=== PATIENT | male | born 1975 | race Caucasian/White ===

== ENCOUNTER 2020-09-06 07:48 | Emergency (ER) | payer OTHER, SELFPAY ==
--- NOTE | ~2020-09-06 | XR_ITS ---
EXAMINATION: XR CHEST CLINICAL INFORMATION: Fever. COMPARISON: None TECHNIQUE: Frontal view of the chest was obtained. FINDINGS: The lungs are well-expanded and clear. The heart size and pulmonary vascularity is normal. No gross bony abnormality seen XR/XR chest 1V IMPRESSION: Unremarkable chest exam.
[2020-09-06 07:58] VITALS: BP 121/74; BP 150/90; PULSE 111; PULSE 140; RESP 20; TEMP 38.9; O2SAT 93; O2SAT 95; BMI 28.7
[2020-09-06] MEDS: Acetaminophen 325 MG TABLET 650 MG PO (08:23)
[2020-09-06 08:50] LABS: COVID-19 Test Negative (Negative)
--- NOTE | 2020-09-06 08:53 | PC.NURSE ---
PT DROWSY, DRINKING WATER, AWAITING MD ELIJAH, NEGATIVE COVID, MEDICATED FOR FEVER
--- NOTE | 2020-09-06 09:15 | ED_ITS ---
HPI - General Adult General Chief complaint: Altered Mental Status Stated complaint: ALTERED MENTAL Time Seen by Provider: 09/06/20 08:50 Source: EMS Mode of arrival: EMS Limitations: no limitations History of Present Illness HPI narrative: 45-year-old male with a past medical history of substance abuse here with complaints of reported altered mental status. Patient was found outside sitting on the ground. Had abrasions all over his legs. He admits to drinking alcohol and smoking some marijuana last night. There was concern from EMS the patient was confused. He was transported to the ER for further eval uation. He tells me he feels well. He was noted to have a fever of 102 on arrival but denies any recent fevers or chills. No vomiting, diarrhea, cough, shortness of breath, chest pain, neck pain, headache. He tells me he has not used any cocaine or heroin since April and recently got out of recovery and is currently on Suboxone Related Data Allergies Allergy/AdvReac Type Severity Reaction Status Date / Time No Known Allergies Allergy Unverified 11/26/19 19:11 [No Known Allergies*] Review of Systems Review of Systems: Yes all other systems are reviewed and are negative Constitutional: Constitutional: Reports no additional constitutional complaints, Denies body ache(s), Denies chills, Denies fever(s), Denies headache(s) and Denies weakness Eyes: Eyes: Reports no additional eye complaints and Denies change in vision ENT: Reports system reviewed and no additional complaints, except as documented, Denies dizziness, Denies headache(s), Denies nasal congestion, Denies nasal discharge and Denies neck pain Cardiovascular: Cardiovascular: Reports no additional cardiovascular complaints, Denies chest pain, Denies leg edema and Denies dyspnea Respiratory: Respiratory: Reports no additional respiratory complaints, Denies cough and Denies dyspnea Gastrointestinal: Gastrointestinal: Reports no additional gastrointestinal complaints, Denies abdominal pain, Denies diarrhea, Denies nausea and Denies vomiting Genitourinary: Genitourinary: Denies urinary incontinence Musculoskeletal: Musculoskeletal: Reports no additional musculoskeletal complaints, Denies back pain, Denies arthralgias, Denies joint swelling, Denies neck pain, Denies numbness and Denies tingling Integumentary/Breasts: Skin/Breast: Reports system reviewed and no additional complaints, except as docu and Denies rash Comments: abrasion Neurologic: Reports system reviewed and no additional complaints, except as documented, Denies Abnormal speech present, Denies dizziness, Denies headache(s), Denies numbness, Denies tingling and Denies weakness PMFSH Past Medical History Attestation statement: The following information was validated with the patient. Source: old records reviewed and nursing notes reviewed Medical History Anxiety Substance abuse or dependence Social History Social History Advance Directives: No Advance Directives Information Provided: No Physical Exam Vital Signs: Vital Signs: Last Vital Signs Temp 99.2 F 09/06/20 10:01 Pulse 91 09/06/20 10:31 Resp 17 09/06/20 10:31 BP 121/74 09/06/20 07:58 Pulse Ox 94 09/06/20 10:31 Body Mass Index 28.7 Const: General: alert, awake and anxious Orientation/consciousness: patient oriented x3 Limitations: no limitations HENMT: Head: Yes normal to inspection Ears: hearing grossly normal bilaterally General nose exam: Normal external nose present Face and sinus: Yes normal facial exam Mouth: Normal oral and palatal mucosa present Throat: Yes posterior oropharynx normal Eyes: General: appearance normal, both eyes and all related structures Pupils: Equal, round and reactive pupils present and Pupil size comments ( pinpoint bilaterally) Neck: Neck: Yes normal visual inspection, Yes full ROM, Yes no lymphadenopathy and Yes no meningeal signs Chest: Chest palpation & inspection: normal inspection of the chest Resp: Effort & Inspection: normal respiratory effort Auscultation: clear to auscultation bilaterally Cardio: Rate: regular rate Rhythm: regular rhythm Peripheral pulses: Peripheral pulses 2+ throughout GI: Inspection: Yes normal to inspection Palpation (GI): Soft to palpation and nontender Auscultation: normal bowel sounds Back/Spine/Pelvis: Thoracic/Lumbar Spine: thoracic and lumbar spine normal to inspection Skin: Other: abrasions noted over the right and left knee and bilateral forearms with no active bleeding General skin exam: no rashes or lesions noted Neuro: Other: erratic behavior, jerking arms/legs around General: patient oriented x3, no meningeal signs, no focal motor deficits and normal sensation to monofilament Cranial nerves: Yes CN's II-XII intact bilaterally, Yes Equal, round and reactive pupils present, Yes Bilaterally intact EOM present, Yes Nystagmus not present, Yes Normal facial strength present and Yes Midline tongue present Cognition (Neuro): normal cognition Speech: No Abnormal speech present Gait exam (Neuro): Normal gait present Motor exam (neuro): 5/5 motor strength present throughout Sensory Exam: Normal double simultaneous stimulation for sensation Extrem: General: Yes normal to inspection Course Course Course Narrative: 45-year-old male after being found sitting outside with abrasions over his legs and arms after he admits to smoking marijuana and drinking a lot of alcohol last night. There was concern for EMS that he was initially altered although on arrival to the emergency department he is oriented x3. He does have pinpoint pupils and is anxious but answers all questions appropriately with stable vital signs. On arrival he has a temperature of 102.1 degrees. He denies any recent illness or any complaints. He had a COVID test and a chest x-ray done by nursing which are negative. He received Tylenol and his temp has improved. I explained to the patient that due to his history of IV drug abuse I am concerned that he may have a more systemic infection which includes but is not limited to meningitis, endocarditis, bacteremia, epidural abscess. I asked the patient if we could obtain labs from him as well as additional imaging but he declined this. He is aware that if he has a systemic infection this could cause disability and . Since he is alert and oriented and answering all questions appropriately I do not feel like we can hold him here against his well. There is a component of substance abuse although he denies currently using any heroin or cocaine he does have some pinpoint pupils on exam and is quite anxious with erratic body movements. Due to this I did explain to the patient that he will need a sober ride to pick him up and bring him home. He is aware he is welcome to return at any time for treatment. - patient had a sober ride who came and picked him up. He walked out with steady gait alert and oriented. Medical Decision Making Medical Records Medical records reviewed: Yes I reviewed the patient's medical records. Lab Data Lab results reviewed: Yes I reviewed the patient's lab results. Labs: Lab Results 09/06/20 Range/Units 08:25 COVID-19 (ANGEL) Negative (Negative) COVID-19 Clin Com See Note Discharge Plan Discharge Clinical Impression: Substance use, Fever Patient Disposition: Left Against Medical Advice Instructions: Fever in Adults (ED), Polysubstance Abuse (ED), Against Medical Advice (ED) Additional Instructions: You have a fever. It was recommended that we check labs, further imaging to rule out any systemic infection. You are a increased risk for systemic infection due to your history of IV drug abuse. You have declined this. You are welcome to return at any time for treatment and we strongly recommend that you do. Referrals: Physician,Unknown [Primary Care Provider] - 2 days Stand Alone Forms: Against Medical Advice Interventions: ED Discharge Assessment Last Done: 09/06/20 12:36 Discharge Date/Time: 09/06/20 12:36
[2020-09-06 10:01] VITALS: PULSE 100; RESP 16; TEMP 37.3; O2SAT 95
[2020-09-06 10:31] VITALS: PULSE 91; RESP 17; O2SAT 94
--- NOTE | 2020-09-06 10:35 | PC.NURSE ---
Pt is refusing for anything to be done. Pt will only allow vital signs to be assessed. Provider is aware
--- NOTE | 2020-09-06 11:56 | PC.NURSE ---
Patient is currently asleep in no distress
--- NOTE | 2020-09-06 12:35 | PC.NURSE ---
pT LEFT AMA WITH RIDE. PT TAKEN OUT TO RIDES VEHICLE VIA WHEELCHAIR IN NO DISTRESS
== END 2020-09-06 12:36 | disposition left against medical advice (07) ==
PROVIDERS: Emergency Provider Emergency Medicine Emergency Medical Services
DX: R50.9 Fever, unspecified (principal); F19.10 Other psychoactive substance abuse, uncomplicated; Z20.822 Contact with and (suspected) exposure to COVID-19
CPT/HCPCS: 36415; 71045; 87635; 99284

== ENCOUNTER 2021-05-26 16:10 | Emergency (ER) | payer OTHER, SELFPAY ==
[2021-05-26 16:21] VITALS: BP 113/62; BP 170/80; PULSE 105; PULSE 88; RESP 11; TEMP 37.1; O2SAT 93; O2SAT 97; BMI 27.2
--- NOTE | 2021-05-26 16:25 | ED_ITS ---
HPI - Overdose General Chief Complaint: Overdose Stated Complaint: overdose Time Seen by Provider: 05/26/21 16:14 Source: EMS Mode of arrival: EMS Limitations: no limitations and other (Cannot remember) History of Present Illness HPI Narrative: Patient comes emergency room via EMS for an overdose. Patient was found unresponsive in his street by police department, patient was given 4 mg of intranasal Narcan, patient woke up. Patient states he cannot remember what happened, states he did not use drugs. However, reviewing patient's records, patient had a similar instance in 2019 when he overdosed with heroin. Patient denies chest pain, no shortness of breath. Patient is somnolent, unable to give significant history. Related Data Allergies Allergy/AdvReac Type Severity Reaction Status Date / Time No Known Allergies Allergy Unverified 11/26/19 19:11 [No Known Allergies*] Review of Systems Review of Systems: Yes Unobtainable due to mental condition PMFSH Past Medical History Medical History Anxiety Substance abuse or dependence Social History Social History Advance Directives: No Advance Directives Information Provided: No Physical Exam Vital Signs: Vital Signs: Last Vital Signs Temp 98.7 F 05/26/21 16:21 Pulse 88 05/26/21 16:21 Resp 11 L 05/26/21 16:21 BP 113/62 05/26/21 16:21 Pulse Ox 93 05/26/21 16:21 BMI result Body Mass Index 27.2 Const: Other: Appearance: Alert. Oriented X3. No acute distress. Somnolent but easily arousable Eyes: Pupils equal, round and reactive to light. ENT: Pharynx normal. Neck: Normal inspection. Neck supple. No lymph nodes noted. No crepitus CVS: Normal heart rate and rhythm. Pulses normal. Normal S1 and S2 Respiratory: No respiratory distress. Breath sounds normal. No Wheezing. No rales Abdomen: Soft and nontender. No rigidity. No distention. Skin: Skin warm and dry. Normal skin color. Normal skin turgor. Extremities: No lower extremity edema. No Lacerations. No Rash Neuro: Oriented X 3. No motor deficit. No sensory deficit. Moving all extremities. No slurred speech. CN 2 through 12 grossly intact Psych: calm, cooperative, teary Course Course Course Narrative: Troponin, EKG, labs within normal limits, alcohol level elevated 198. Patient has not provided a urine sample. Patient likely did overdose. Patient remained saturating at 93-96% on room air. Planus to metabolize to freedom, when patient is awake, care team can do the SUDE evaluation Physician sil ozuna started at 18:14 The patient was evaluated by the care team. Patient ready for discharge. Patient is alert, awake, steady gait, clinically sober MDM - Overdose Lab Data Result diagrams: 05/26/21 16:51 05/26/21 16:51 Labs: Lab Results 05/26/21 05/26/21 05/26/21 Range/Units 16:51 16:51 16:51 WBC 5.7 (4.8-10.8) X10*3/uL RBC 4.45 L (4.60-5.80) X10*6/uL Hgb 13.3 L (14.0-18.0) g/dl Hct 40.1 L (42.0-52.0) % MCV 90.1 (80.0-98.0) fL MCH 29.9 (27.0-33.0) pg MCHC 33.2 (31.0-36.0) g/dl RDW 12.8 (11.0-16.0) % Plt Count 341 (160-400) X10*3/uL MPV 9.4 (9.4-12.4) fL Immature Gran % (Auto) 0.3 (0.0-0.4) % Neut % (Auto) 60.9 (45-73) % Lymph % (Auto) 31.8 (20-40) % [place] % (Auto) 5.8 (2-11) % Eos % (Auto) 0.7 (0-4) % Baso % (Auto) 0.5 (0-2) % Lymph # (Auto) 1.8 (1.2-4.9) X10*3/uL [place] # (Auto) 0.3 (0.1-1.2) X10*3/uL Eos # (Auto) 0.0 (0.0-0.4) X10*3/uL Baso # (Auto) 0.0 (0.0-0.2) X10*3/uL Abs Immat Gran (auto) 0.02 (0.00-0.03) X10*3/uL Absolute Neuts (auto) 3.5 (2.0-8.3) x10*3/uL Absolute Nucleated RBC 0.000 (0.0-0.012) X10*3/uL Nucleated RBC % (auto) 0.0 (0.0-0.2) /100WBC Sodium 142 (135-145) mmol/L Potassium 3.9 (3.3-5.1) mmol/L Chloride 108 (96-108) mmol/L Carbon Dioxide 24 (22-29) mmol/L Anion Gap 14 (12-20) BUN 10 (9-16) mg/dL Creatinine 0.91 (0.5-1.4) mg/dL Estim Creat Clear Calc 108.0 Estimated GFR > 60 Random Glucose 93 (60-115) mg/dL Calcium 9.0 (8.4-10.2) mg/dL Magnesium 2.1 (1.6-2.6) mg/dL Total Bilirubin 0.5 (0.0-1.0) mg/dL Direct Bilirubin < 0.2 (0.0-0.5) mg/dL AST 23 (5-37) U/L ALT 19 (0-40) U/L Alkaline Phosphatase 72 (39-117) U/L Troponin I High Sens < 3.5 (<3.5-35.0) ng/L Total Protein 6.9 (6.5-8.0) g/dL Albumin 4.1 (3.5-5.0) g/dL Ethyl Alcohol mg/dL 05/26/21 Range/Units 16:51 WBC (4.8-10.8) X10*3/uL RBC (4.60-5.80) X10*6/uL Hgb (14.0-18.0) g/dl Hct (42.0-52.0) % MCV (80.0-98.0) fL MCH (27.0-33.0) pg MCHC (31.0-36.0) g/dl RDW (11.0-16.0) % Plt Count (160-400) X10*3/uL MPV (9.4-12.4) fL Immature Gran % (Auto) (0.0-0.4) % Neut % (Auto) (45-73) % Lymph % (Auto) (20-40) % [place] % (Auto) (2-11) % Eos % (Auto) (0-4) % Baso % (Auto) (0-2) % Lymph # (Auto) (1.2-4.9) X10*3/uL [place] # (Auto) (0.1-1.2) X10*3/uL Eos # (Auto) (0.0-0.4) X10*3/uL Baso # (Auto) (0.0-0.2) X10*3/uL Abs Immat Gran (auto) (0.00-0.03) X10*3/uL Absolute Neuts (auto) (2.0-8.3) x10*3/uL Absolute Nucleated RBC (0.0-0.012) X10*3/uL Nucleated RBC % (auto) (0.0-0.2) /100WBC Sodium (135-145) mmol/L Potassium (3.3-5.1) mmol/L Chloride (96-108) mmol/L Carbon Dioxide (22-29) mmol/L Anion Gap (12-20) BUN (9-16) mg/dL Creatinine (0.5-1.4) mg/dL Estim Creat Clear Calc Estimated GFR Random Glucose (60-115) mg/dL Calcium (8.4-10.2) mg/dL Magnesium (1.6-2.6) mg/dL Total Bilirubin (0.0-1.0) mg/dL Direct Bilirubin (0.0-0.5) mg/dL AST (5-37) U/L ALT (0-40) U/L Alkaline Phosphatase (39-117) U/L Troponin I High Sens (<3.5-35.0) ng/L Total Protein (6.5-8.0) g/dL Albumin (3.5-5.0) g/dL Ethyl Alcohol 198 mg/dL Discharge Plan Discharge Clinical Impression: Alcohol intoxication Patient Disposition: Home, Self-Care Instructions: Abuse of Alcohol (DC), Alcohol Intoxication (ED) Additional Instructions: Please follow-up with your primary care physician tomorrow. If you have any worsening or new symptoms, please return to the emergency room or call 911
--- NOTE | 2021-05-26 16:30 | ECG_ITS ---
Test Reason : overdose Blood Pressure : / mmHG Vent. Rate : 085 BPM Atrial Rate : 085 BPM P-R Int : 204 ms QRS Dur : 100 ms QT Int : 370 ms P-R-T Axes : 053 043 026 degrees QTc Int : 440 ms Normal sinus rhythm Normal ECG When compared with ECG of 08-MAY-2018 15:17, No significant change was found Referred By: Judi Lee Electronically Signed By:MARILOU MARC
--- NOTE | 2021-05-26 16:30 | PC.NURSE ---
Pt rousable to voice, changed over with security present, belongings sent to decon. Pt cooperative with changeover, denies SI/HI.
[2021-05-26 16:59] LABS: Basophils Percent Auto 0.5 % (0-2); Eosinophils Percent Auto 0.7 % (0-4); Hematocrit 40.1 % (42.0-52.0); Hemoglobin 13.3 g/dl (14.0-18.0); Imm Gran Abs Auto 0.02 X10*3/uL (0.00-0.03); Imm Gran Pct Auto 0.3 % (0.0-0.4); Lymphocytes Absolute Auto 1.8 X10*3/uL (1.2-4.9); Lymphocytes Percent Auto 31.8 % (20-40); MANUAL DIFF FLAG NO; Mean Corpuscular HGB Conc 33.2 g/dl (31.0-36.0); Mean Corpuscular Hemoglobin 29.9 pg (27.0-33.0); Mean Corpuscular Volume 90.1 fL (80.0-98.0); Mean Platelet Volume 9.4 fL (9.4-12.4); Monocytes Absolute Auto 0.3 X10*3/uL (0.1-1.2); Monocytes Percent Auto 5.8 % (2-11); Neutrophils Absolute Auto 3.5 x10*3/uL (2.0-8.3); Neutrophils Percent Auto 60.9 % (45-73); Platelet Count 341 X10*3/uL (160-400); Red Blood Count 4.45 X10*6/uL (4.60-5.80); Red Cell Distribution Width 12.8 % (11.0-16.0); White Blood Count 5.7 X10*3/uL (4.8-10.8)
[2021-05-26 17:10] LABS: Ethanol 198 mg/dL
[2021-05-26 17:14] LABS: Alanine Aminotransferase 19 U/L (0-40); Albumin Level 4.1 g/dL (3.5-5.0); Alkaline Phosphatase 72 U/L (39-117); Anion Gap 14 (12-20); Aspartate Amino Transferase 23 U/L (5-37); Bilirubin Direct < 0.2 mg/dL (0.0-0.5); Bilirubin Total 0.5 mg/dL (0.0-1.0); Blood Urea Nitrogen 10 mg/dL (9-16); Carbon Dioxide 24 mmol/L (22-29); Chloride 108 mmol/L (96-108); Estimated Glomerular Filt Rate > 60; Glucose Random 93 mg/dL (60-115); Magnesium 2.1 mg/dL (1.6-2.6); Potassium 3.9 mmol/L (3.3-5.1); Sodium 142 mmol/L (135-145); Total Protein 6.9 g/dL (6.5-8.0)
[2021-05-26 17:18] LABS: Troponin-I High Sensitivity < 3.5 ng/L (<3.5-35.0)
--- NOTE | 2021-05-26 17:22 | PC.NURSE ---
CARE team at bedside for eval
--- NOTE | 2021-05-26 17:24 | HO.SUDE ---
CARE Team offered pt SUDE and substance use resources. Due to pt's altered mental status, he was unable to participate in SUDE at this time.
--- NOTE | 2021-05-26 17:28 | MHC.CARE ---
CARE Team met with pt to offer substance us resources, pt declined detox, but expressed interest in meeting with a [facility].
--- NOTE | 2021-05-26 18:25 | MHC.RECOVSUP ---
? Reason for consult Recovery Support o Current location: ED21 o Identified substance use concern: Heroin - Overdose - Seeking ATS (detox) - Support ? Intervention: <del>o</del> <del>ATS</del> <del>bed</del> <del>search</del> <del>started/completed/in</del> <del>process</del> <del>o</del> <del>MAT</del> <del>started</del> <del>or</del> <del>to</del> <del>be</del> <del>started</del> o Community resources provided o Harm reduction discussion ? Plan: <del>o</del> <del>Referral</del> <del>to</del> <del>[facility]</del> <del>o</del> <del>Bed</del> <del>search</del> <del>in</del> <del>progress</del> <del>to</del> <del>o</del> <del>Follow</del> <del>up</del> <del>tomorrow</del> <del>o</del> <del>Patient</del> <del>awaiting</del> <del>crisis</del> <del>evaluation</del> o Patient to follow up with [facility] after discharge ? Additional information: Met with Patient and we talk harm reduction & recovery.. We talked about different pathways to recovery and we talked about [facility].. Patient stated that he don't need a detox due to he only used once..
== END 2021-05-26 19:20 | disposition home or self-care (01) ==
PROVIDERS: Emergency Provider Emergency Medicine
DX: F10.120 Alcohol abuse with intoxication, uncomplicated (principal); Y90.6 Blood alcohol level of 120-199 mg/100 ml; R40.0 Somnolence; F19.10 Other psychoactive substance abuse, uncomplicated
CPT/HCPCS: 36415; 80048; 80076; 82077; 83735; 84484; 85025; 93005; 99283